=== PATIENT | male | born 1995 | race Caucasian/White ===

== ENCOUNTER 2024-10-25 15:10 | Emergency (ER) | payer BC ==
[~2024-10-25] VITALS: Ht 170.2 cm; Wt 90.0 kg
[2024-10-25 15:12] VITALS: O2SAT 98
[2024-10-25] MEDS: TETANUS, DIPHTHERIA, PERTUSSIS VAC/PF 0.5ML (>10YR OLD) IM ONE (17:10)
[2024-10-25] MEDS: LIDOCAINE HCL/PF 1% 10 MG/ML 5ML VIAL INFIL ONE (17:12)
[2024-10-25] MEDS: BACITRACIN ZINC OINT UDPKT TOP ONE (17:18)
[2024-10-25] MEDS ORDERED: BO1 TP (17:22)
[2024-10-25 18:00] VITALS: BP 130/88; PULSE 100; RESP 16; TEMP 36.9; O2SAT 98
== END 2024-10-25 18:31 | disposition home or self-care (01) ==
LOC: ER 15:10
DX: S61.411A Laceration without foreign body of right hand, initial encounter (principal); S61.215A Laceration without foreign body of left ring finger without damage to nail, initial encounter; X58.XXXA Exposure to other specified factors, initial encounter; Y93.89 Activity, other specified; Y92.89 Other specified places as the place of occurrence of the external cause; Y99.8 Other external cause status
CPT/HCPCS: 73130; 12002; 99283; J2003; Z7610